=== PATIENT | female | born 1995 | race Caucasian/White ===

== ENCOUNTER 2022-10-06 23:40 | Emergency (ER) | payer OTHER, SELFPAY ==
[2022-10-06 23:53] VITALS: BP 141/91; BP 70/40; PULSE 110; PULSE 51; RESP 16; TEMP 36.7; O2SAT 98; BMI 32.3
--- NOTE | 2022-10-07 00:01 | ED.GENADULT ---
HPI - General Adult General Chief complaint: ETOH/Substance Use Stated complaint: etoh vomiting and aimee Time Seen by Provider: 10/06/22 23:49 Source: patient Limitations: altered mental status (Intoxication) History of Present Illness HPI narrative: This is a 47-year-old female who was drinking with friends, drank number of drinks of alcohol, also uses marijuana. The patient developed vomiting and diarrhea. She also notes that she tripped and fell and lightly bumped her head. She denies loss of consciousness. She denies any headache, denies any neck pain. She denies abdominal pain states she still feels nauseated. She was given Zofran 4 mg IV and normal saline 500 mL IV on route. She denies any significant past medical history. Patient denies wanting to hurt herself Related Data Previous Rx's Medication Instructions Recorded ondansetron 4 mg disintegrating 4 mg PO Q6H PRN nausea and 10/07/22 tablet vomiting #7 tabs Allergies Allergy/AdvReac Type Severity Reaction Status Date / Time No Known Allergies Allergy Verified 10/06/22 23:59 Review of Systems Review of Systems: As per HPI Constitutional: Constitutional: Denies fever(s) Cardiovascular: Cardiovascular: Reports no additional cardiovascular complaints Respiratory: Respiratory: Reports no additional respiratory complaints Gastrointestinal: Gastrointestinal: Reports diarrhea, Reports nausea and Reports vomiting PMFSH Social History Social History Advance Directives: No Advance Directives Information Provided: No Physical Exam ED Vital Signs: Vital Signs - 24 hr 10/06/22 23:53 10/07/22 00:55 Temperature 98.1 F 97.3 F Pulse Rate 51 67 Respiratory Rate 16 14 Blood Pressure 141/91 H 122/64 Pulse Oximetry 98 95 Oxygen Delivery Method Room Air Room Air BMI result Body Mass Index 32.3 Const Other: Patient is somewhat intoxicated appearing, tearful General: no acute distress Orientation/consciousness: patient oriented x3 HENMT Head: Yes normal to inspection General nose exam: Normal external nose present Mouth: moist mucous membranes Throat: Yes posterior oropharynx normal, Yes tonsils normal and Yes uvula midline Eyes Eyelids: Yes eyelids normal Conjunctivae: conjunctivae normal Pupils: Equal, round and reactive pupils present Neck Neck: Yes supple Resp Effort & Inspection: normal respiratory effort Auscultation: clear to auscultation bilaterally Cardio Rate: regular rate Rhythm: regular rhythm Heart sounds: S1 normal heart sound present, S2 normal heart sound present, no gallops, no murmurs and no rubs GI Inspection: No distended Palpation (GI): Soft to palpation and nontender Auscultation: normal bowel sounds Skin General skin exam: other (Warm and dry) Neuro General: patient oriented x3 and CN's II-XI intact bilaterally Cranial nerves: Yes Equal, round and reactive pupils present Extrem General: Yes no pedal edema Psych Affect: normal affect Attitude: cooperative Medications Administered Discontinued Medications Generic Name Dose Route Start Last Admin Trade Name Therese PRN Reason Stop Dose Admin Sodium Chloride 1,000 mls @ 999 mls/hr 10/06/22 23:45 10/07/22 01:23 Ns IV 10/07/22 00:45 Infused .Q1H1M SRIRAM Infusion Loperamide HCl 4 mg 10/07/22 00:09 10/07/22 00:16 Loperamide Hcl 2 Mg Capsule PO 10/07/22 00:10 4 mg ONCE ONE Administration Metoclopramide HCl 10 mg 10/06/22 23:59 10/07/22 00:17 Metoclopramide Hcl 10 Mg/2 Ml Vial IVPUSH 10/07/22 00:00 10 mg ONCE ONE Administration Medical Decision Making Medical Decision Making MDM Narrative: Patient with acute vomiting and diarrhea after drinking alcohol and using marijuana. Patient was given normal saline 1 L IV,, Reglan 10 mg IV and Imodium 4 mg p.o.. Patient was able to fall sleep. Patient will be discharged home prescription for Zofran and can use Imodium if she has persistent diarrhea. Labs unremarkable except for ethanol level of around 190 Differential Diagnosis Gastritis, alcohol intoxication, pancreatitis, upper GI bleed, overdose Lab Data Result Diagrams: 10/07/22 00:13 10/07/22 00:13 Labs: Lab Results 10/07/22 10/07/22 Range/Units 00:13 00:13 WBC 7.8 (4.8-10.8) X10*3/uL RBC 4.20 (4.20-5.50) X10*6/uL Hgb 11.6 L (12.0-16.0) g/dl Hct 36.4 L (37.0-47.0) % MCV 86.7 (80.0-98.0) fL MCH 27.6 (27.0-33.0) pg MCHC 31.9 (31.0-35.0) g/dl RDW 13.2 (11.0-16.0) % Plt Count 243 (160-400) X10*3/uL MPV 10.6 (9.4-12.3) fL Immature Gran % (Auto) 0.1 (0.0-0.4) % Neut % (Auto) 58.9 (45-73) % Lymph % (Auto) 32.4 (20-40) % [place] % (Auto) 6.6 (2-11) % Eos % (Auto) 1.5 (0-4) % Baso % (Auto) 0.5 (0-2) % Lymph # (Auto) 2.5 (1.2-4.9) X10*3/uL [place] # (Auto) 0.5 (0.1-1.2) X10*3/uL Eos # (Auto) 0.1 (0.0-0.4) X10*3/uL Baso # (Auto) 0.0 (0.0-0.2) X10*3/uL Abs Immat Gran (auto) 0.01 (0.00-0.03) X10*3/uL Absolute Neuts (auto) 4.6 (2.0-8.3) x10*3/uL Absolute Nucleated RBC 0.000 (0.0-0.012) X10*3/uL Nucleated RBC % (auto) 0.0 (0.0-0.2) /100WBC Sodium 140 (135-145) mmol/L Potassium 3.9 (3.3-5.1) mmol/L Chloride 107 (96-108) mmol/L Carbon Dioxide 24 (22-29) mmol/L Anion Gap 13 (12-20) BUN 8 L (9-16) mg/dL Creatinine 0.75 (0.5-1.4) mg/dL Estim Creat Clear Calc 128.9 Estimated GFR > 60 Random Glucose 95 (60-115) mg/dL Calcium 8.8 (8.4-10.2) mg/dL Total Bilirubin 0.2 (0.0-1.0) mg/dL AST 26 (5-31) U/L ALT 20 (0-31) U/L Alkaline Phosphatase 75 (39-117) U/L Total Protein 6.9 (6.5-8.0) g/dL Albumin 4.1 (3.5-5.0) g/dL Beta HCG, Quant < 2 mIU/mL Ethyl Alcohol 180 mg/dL Discharge Plan Discharge Clinical Impression: Alcoholic intoxication, Nausea vomiting and diarrhea Instructions: Alcohol Intoxication (ED), Acute Nausea and Vomiting (ED), Acute Diarrhea (ED) Additional Instructions: Drink plenty of fluids (non alcoholic). Use ondansetron as prescribed for nausea. Use Imodium if you have persistent diarrhea. Prescriptions: New ondansetron 4 mg tablet,disintegrating 4 mg PO Q6H PRN (Reason: nausea and vomiting) Qty: 7 0RF
[2022-10-07] MEDS: Loperamide HCl 2 MG CAPSULE 4 MG PO (00:16)
[2022-10-07] MEDS: 0.9 % Sodium Chloride 1,000 ML 999 ML IV (00:17)
[2022-10-07] MEDS: Metoclopramide HCl 10 MG/2 ML VIAL IVPUSH (00:17)
[2022-10-07 00:18] LABS: Basophils Percent Auto 0.5 % (0-2); Eosinophils Absolute Auto 0.1 X10*3/uL (0.0-0.4); Eosinophils Percent Auto 1.5 % (0-4); Hematocrit 36.4 % (37.0-47.0); Hemoglobin 11.6 g/dl (12.0-16.0); Imm Gran Abs Auto 0.01 X10*3/uL (0.00-0.03); Imm Gran Pct Auto 0.1 % (0.0-0.4); Lymphocytes Absolute Auto 2.5 X10*3/uL (1.2-4.9); Lymphocytes Percent Auto 32.4 % (20-40); MANUAL DIFF FLAG NO; Mean Corpuscular HGB Conc 31.9 g/dl (31.0-35.0); Mean Corpuscular Hemoglobin 27.6 pg (27.0-33.0); Mean Corpuscular Volume 86.7 fL (80.0-98.0); Mean Platelet Volume 10.6 fL (9.4-12.3); Monocytes Absolute Auto 0.5 X10*3/uL (0.1-1.2); Monocytes Percent Auto 6.6 % (2-11); Neutrophils Absolute Auto 4.6 x10*3/uL (2.0-8.3); Neutrophils Percent Auto 58.9 % (45-73); Platelet Count 243 X10*3/uL (160-400); Red Cell Distribution Width 13.2 % (11.0-16.0); White Blood Count 7.8 X10*3/uL (4.8-10.8)
[2022-10-07 00:36] LABS: Alanine Aminotransferase 20 U/L (0-31); Albumin Level 4.1 g/dL (3.5-5.0); Alkaline Phosphatase 75 U/L (39-117); Anion Gap 13 (12-20); Aspartate Amino Transferase 26 U/L (5-31); Blood Urea Nitrogen 8 mg/dL (9-16); Calcium 8.8 mg/dL (8.4-10.2); Carbon Dioxide 24 mmol/L (22-29); Chloride 107 mmol/L (96-108); Creatinine Clr Calc Pharmacy 128.9; Estimated Glomerular Filt Rate > 60; Ethanol 180 mg/dL; Glucose Random 95 mg/dL (60-115); Potassium 3.9 mmol/L (3.3-5.1); Sodium 140 mmol/L (135-145); Total Protein 6.9 g/dL (6.5-8.0)
[2022-10-07 00:40] LABS: HCG Quantitative < 2 mIU/mL
[2022-10-07 00:55] VITALS: BP 122/64; PULSE 67; RESP 14; TEMP 36.3; O2SAT 95
[2022-10-07 00:55] LABS: Bilirubin Total 0.2 mg/dL (0.0-1.0)
== END 2022-10-07 03:22 | disposition home or self-care (01) ==
PROVIDERS: Emergency Provider Emergency Medicine
DX: F10.129 Alcohol abuse with intoxication, unspecified (principal); Y90.6 Blood alcohol level of 120-199 mg/100 ml; R11.2 Nausea with vomiting, unspecified; Z79.899 Other long term (current) drug therapy
CPT/HCPCS: 36415; 80053; 82077; 84702; 85025; 96361; 96374; 99284; J2765